=== PATIENT | female | born 1995 | race Caucasian/White ===

== ENCOUNTER 2023-03-21 04:11 | Inpatient (IN) | payer BC ==
[2023-03-21 04:36] VITALS: BMI 31.3
[2023-03-21] MEDS ORDERED: Tranexamic Acid 1,000 MG/10 ML VIAL IVP PRN (04:47)
[2023-03-21] MEDS ORDERED: Ondansetron PF 4 MG/2 ML Vial IVP PRN ×3 (04:47→12:17)
[2023-03-21] MEDS ORDERED: Butorphanol Tartrate 1 MG/ML VIAL SLOW IVP PRN (04:47)
[2023-03-21] MEDS ORDERED: hydrALAZINE 20 MG/ML VIAL SLOW IVP PRN ×2 (04:47→12:17)
[2023-03-21] MEDS ORDERED: Promethazine HCl 25 MG/ML VIAL IM PRN ×2 (04:47→06:28)
[2023-03-21] MEDS ORDERED: Docusate 100 MG CAP PO PRN (04:47)
[2023-03-21] MEDS ORDERED: Diphenoxylate HCl/Atropine Tablet PO PRN (04:47)
[2023-03-21] MEDS ORDERED: Methylergonovine 0.2 MG/ML VIAL IM PRN (04:47)
[2023-03-21] MEDS ORDERED: Carboprost 250 MCG/ML AMP IM PRN (04:47)
[2023-03-21] MEDS ORDERED: Acetaminophen 500 MG TAB PO PRN (04:47)
[2023-03-21] MEDS ORDERED: Misoprostol 200 MCG TAB PR PRN (04:47)
[2023-03-21] MEDS ORDERED: Ibuprofen 800 MG TAB PO PRN (04:50)
[2023-03-21] MEDS ORDERED: HYDROcodone/Acetaminophen 5/325 mg Tablet PO PRN ×3 (04:50→12:17)
[2023-03-21] MEDS ORDERED: Acetaminophen/Codeine 30-300mg Tablet PO PRN (04:50)
[2023-03-21] MEDS ORDERED: Lidocaine 1% (PF) 30 ML VIAL SC PRN (04:50)
[2023-03-21] MEDS ORDERED: Lactated Ringer's 1,000 ML IV SCH (05:00)
[2023-03-21] MEDS ORDERED: NS w/ Oxytocin 30 units 500 ML IV SCH ×2 (05:00)
[2023-03-21] MEDS ORDERED: Penicillin G Potassium 5 MILL.UNITS in Sodium Chloride 0.9% 100 ML IVPB SCH (05:00)
[2023-03-21] MEDS ORDERED: Penicillin G Potassium 5 MILL.UNITS VIAL ONE (05:00)
[2023-03-21 05:04] LABS: Hemoglobin 12.1 g/dL (12.0-15.5); Mean Corpuscular HGB CONC 33.9 g/dL (32.0-36.0); Mean Corpuscular Hemoglobin 29.8 pg (27.0-33.0); Mean Corpuscular Volume 87.9 fl (81.6-98.3); Mean Platelet Volume 10.7 fl (7.4-10.4); Platelet Count 219 10x3/uL (150-450); Red Blood Cell (RBC) Count 4.06 10x6/uL (3.90-5.03); White Blood Cell (WBC) Count 9.2 10x3/uL (3.5-10.5)
[2023-03-21] MEDS ORDERED: Fentanyl 2 mcg/Bup 0.1% Cadd 100 ML ONE (05:28)
[2023-03-21 05:38] LABS: Syphilis Antibody Nonreactive (Nonreactive); Syphilis Antibody Index 0.05 S/CO (<1.00 Non-Reactive)
[2023-03-21 05:40] LABS: HBSAg Index 0.12 S/CO (0-0.99); Hep B Surf Ag - L&D Non-Reactive S/CO (NonReactive)
[2023-03-21] MEDS ORDERED: fentaNYL 50 mcg/mL 1 mL Vial ONE (06:26)
[2023-03-21] MEDS ORDERED: diphenhydrAMINE 50 MG/ML VIAL IVP PRN (06:28)
[2023-03-21] MEDS ORDERED: ePHEDrine Sulfate 50 MG/10 ML VIAL SLOW IVP PRN (06:28)
[2023-03-21] MEDS ORDERED: Lactated Ringer's 500 ML IV PRN (06:28)
[2023-03-21] MEDS ORDERED: Naloxone HCl 0.4 mg/ml Vial IVP PRN ×2 (06:28)
[2023-03-21] MEDS ORDERED: Acetaminophen 325 MG TAB PO PRN (06:28)
[2023-03-21] MEDS ORDERED: Moisturizing Cream (Eucerin) 113 GM JAR TOP PRN (06:28)
[2023-03-21] MEDS ORDERED: Fentanyl 2 mcg/Bupivacaine 0.1% Cassette 100 ML EPIDURAL SCH (06:30)
[2023-03-21] MEDS ORDERED: Communication Order-Pharmacy FS SCH (06:30)
[2023-03-21] MEDS ORDERED: Bupivacaine/Epinephrine 0.25% 30 ML VIAL ONE (08:00)
[2023-03-21] MEDS ORDERED: Penicillin G 2.5 MILL.units 2.5 MILL.UNITS in Premix Bag 1 BAG IVPB SCH (09:00)
[2023-03-21] MEDS ORDERED: Lanolin Ointment 7 GM TUBE TOP PRN (12:17)
[2023-03-21] MEDS ORDERED: Milk Of Magnesia 30 ML UDCUP PO PRN (12:17)
[2023-03-21] MEDS ORDERED: Benzocaine-Menthol 82.5 ML CAN TOP PRN (12:17)
[2023-03-21] MEDS ORDERED: Bisacodyl 10 MG SUPP PR PRN (12:17)
[2023-03-21] MEDS ORDERED: Boostrix 0.5 ML (Tdap) VIAL (>/=7 yrs of age) IM ONE (12:17)
[2023-03-21] MEDS ORDERED: diphenhydrAMINE 25 MG CAP PO PRN (12:17)
[2023-03-21] MEDS ORDERED: Prenatal Vitamin 1 TAB PO SCH (12:30)
[2023-03-21] MEDS ORDERED: Docusate 100 MG CAP PO SCH (12:30)
[2023-03-21] MEDS: Ibuprofen 800 MG TAB PO SCH ×2 (13:43→21:15)
[2023-03-21] MEDS: Ferrous Sulfate 325 MG TAB PO SCH (13:45)
[2023-03-21] MEDS: Docusate 100 MG CAP PO SCH (21:16)
[2023-03-22] MEDS: Ibuprofen 800 MG TAB PO SCH ×3 (06:08→22:01)
[2023-03-22] MEDS: Prenatal Vitamin 1 TAB PO SCH (08:44)
[2023-03-22] MEDS: Ferrous Sulfate 325 MG TAB PO SCH ×2 (08:47→15:32)
[2023-03-22] MEDS: Docusate 100 MG CAP PO SCH ×2 (09:16→22:01)
[2023-03-23] MEDS: Ibuprofen 800 MG TAB PO SCH (04:53)
[2023-03-23] MEDS: Ferrous Sulfate 325 MG TAB PO SCH (07:42)
[2023-03-23 08:10] VITALS: BP 123/82; TEMP 98.3
[2023-03-23] MEDS: Docusate 100 MG CAP PO SCH (09:00)
[2023-03-23] MEDS: Prenatal Vitamin 1 TAB PO SCH (09:00)
== END 2023-03-23 13:00 | disposition home or self-care (01) | DRG 807 ==
LOC: CSHLD/OP 04:11 → CSHLD 04:42 → CSHPP 11:55
PROVIDERS: ADMIT Obstetrics & Gynecology; ATTEND Obstetrics & Gynecology
PROC: 10E0XZZ Delivery of Products of Conception, External Approach (ICD-10-PCS; principal; 2023-03-22)
PROC: 0UQMXZZ Repair Vulva, External Approach (ICD-10-PCS; 2023-03-22)
DX: O70.0 First degree perineal laceration during delivery (principal); Z37.0 Single live birth; Z3A.39 39 weeks gestation of pregnancy; Z91.018 Allergy to other foods
CPT/HCPCS: 51702; 85027; 86780; 86850; 86870; 86900; 86901; 87340; 99285; J2540

== ENCOUNTER 2023-04-20 16:18 | Emergency (ER) | payer BC ==
[2023-04-20 17:02] LABS: #Basophils 0.1 10x3/uL (0.0-0.2); #Eosinphils 0.6 10x3/uL (0.0-0.5); #Monocytes 0.6 10x3/uL (0.0-1.1); %Basophils 0.8 % (0.0-2.0); %Eosinophils 7.5 % (0.0-6.0); %Lymphocytes 30.7 % (18.0-47.0); %Monocytes 7.5 % (0.0-10.0); %Neutrophils 53.4 % (40.0-75.0); Hemoglobin 13.8 g/dL (12.0-15.5); Mean Corpuscular HGB CONC 33.5 g/dL (32.0-36.0); Mean Corpuscular Hemoglobin 29.6 pg (27.0-33.0); Mean Corpuscular Volume 88.4 fl (81.6-98.3); Platelet Count 268 10x3/uL (150-450); RBC Distribution Width 11.5 % (11.5-14.5); Red Blood Cell (RBC) Count 4.66 10x6/uL (3.90-5.03); White Blood Cell (WBC) Count 7.4 10x3/uL (3.5-10.5)
[2023-04-20 17:23] LABS: ALT (SGPT) 19 U/L (8-55); AST (SGOT) 20 U/L (5-34); Albumin 4.3 g/dL (3.5-5.0); Alkaline Phosphatase 87 U/L (40-110); Anion Gap 13 mmol/L (10-20); BUN (Urea Nitrogen) 9 mg/dL (7.0-18.7); Bilirubin, Total 0.3 mg/dL (0.2-1.2); Calc. Creatinine Clearance 0 mL/min (70-130); Calcium 9.4 mg/dL (7.8-10.44); Carbon Dioxide 27 mmol/L (22-29); Chloride 105 mmol/L (98-107); Estimated GFR 107; Globulin 2.9 g/dL (2.4-3.5); Glucose 94 mg/dL (70-105); Potassium 4.5 mmol/L (3.5-5.1); Protein, Total 7.2 g/dL (6.0-8.3); Sodium 140 mmol/L (136-145)
[2023-04-20 18:01] LABS: Bilirubin Neg (Negative); Blood, Urine 250 (Negative); Clarity Cloudy (Clear); Glucose, Urine (Dipstick) Normal (Negative); Ketone, Urine Negative (Negative); Leukocyte 25 (Negative); Nitrite Negative (Negative); Protein, Urine (Dipstick) 15 mg/dl (Neg-Trace); Urobilinogen Normal mg/dL (Less than 2)
[2023-04-20 18:13] LABS: Bacteria/HPF Rare-Few HPF (None Seen); CAUTI Indications for Culture Pelvic or flank pain; RBC/HPF Greater than 50 HPF (0-3); Renal Epithelial 0-3 HPF (None Seen); Squamous Epithelial 0-3 HPF (0-3); WBC/HPF 0-3 HPF (0-3)
[2023-04-20 18:15] LABS: Urine Culture Reflex No No
== END 2023-04-20 20:03 | disposition home or self-care (01) ==
LOC: CSHERS 16:18
DX: N93.9 Abnormal uterine and vaginal bleeding, unspecified (principal)
CPT/HCPCS: 36415; 76856; 80053; 81001; 84702; 85025; 86850; 86900; 86901